=== PATIENT | female | born 1970 | race Caucasian/White ===

== ENCOUNTER → 2017-05-10 | Outpatient (CLI) | payer OTHER ==
--- NOTE | 2017-05-11 08:31 | MM ---
Reason for exam: screening (asymptomatic). Last mammogram was performed 1 year and 5 months ago. History: Family history of breast cancer in paternal aunt at age 40 and breast cancer in paternal grandmother at age 50. Took hormonal contraceptives for 7 years beginning at age 24. Physical Findings: A clinical breast exam by your physician is recommended on an annual basis and results should be correlated with mammographic findings. MG 3D Screening Mammo W/Cad Bilateral CC and MLO view(s) were taken. Prior study comparison: December 16, 2015, bilateral MG diagnostic mammo w CAD [facility]. August 14, 2014, mammogram, performed at [facility]. The breast tissue is extremely dense which could obscure a lesion on mammography. There is no discrete abnormality. No significant changes when compared with prior studies. ASSESSMENT: Negative, BI-RAD 1 RECOMMENDATION: Routine screening mammogram of both breasts in 1 year.
== END | disposition home or self-care (01) ==
LOC: RADMAMWWP 09:05
PROVIDERS: ATTEND Obstetrics & Gynecology
DX: Z12.31 Encounter for screening mammogram for malignant neoplasm of breast (principal)
CPT/HCPCS: 77063; 77067

== ENCOUNTER → 2017-12-20 | Outpatient (CLI) | payer OTHER ==
--- NOTE | 2017-12-22 08:51 | MR ---
EXAMINATION TYPE: MR knee RT wo con DATE OF EXAM: 12/20/2017 COMPARISON: Outside radiographs 12/07/2017 HISTORY: 47-year-old female knee pain, lateral aspect x 2 months TECHNIQUE: Multiplanar, multisequence imaging of the right knee is performed without IV contrast. FINDINGS: ACL is intact but shows a 1.8 x 1.0 x 0.8 cm multilocular ganglion cyst. No intraosseous or other int ra-articular extension. PCL, MCL, and LCL complex are intact. Mild diffuse thinning of both medial and lateral compartment articular cartilage volumes. No focal ch ondral defect. Both medial and lateral menisci are intact. Overall patellofemoral compartment articular cartilage volume is maintained. Extensor mechanism is intact but with mild thickening and intermediate signal on the deep proximal pa tellar tendon fibers compatible with tendinosis. There is focal edema and soft tissue thickening at the origin of the medial head gastrocnemius along the posterolateral aspect of the medial femoral condyle, refer to axial image 16, sagittal image 6, a nd coronal image 23. Physiologic joint fluid. Trace fluid insinuating between the medial head gastrocnemius and semimembra nosus tendons. No sizable Allan's cyst at this time. Normal popliteal artery anatomy and muscle bulk. No suspicious bone marrow replacement. IMPRESSION: 1. ACL ganglion cyst measuring 1.8 x 1.0 cm may be incidental. These can be symptomatic in some patie nts. 2. No focal chondral injury or otherwise any cruciate/collateral ligament or meniscal tear. 3. Focal edema and soft tissue thickening at the origin of the medial head gastrocnemius could repres ent a mild to moderate strain.
== END | disposition home or self-care (01) ==
LOC: RADMRIMAIN 14:48
PROVIDERS: ATTEND Orthopaedic Surgery
DX: M67.461 Ganglion, right knee (principal); M79.89 Other specified soft tissue disorders; M25.461 Effusion, right knee

== ENCOUNTER → 2019-04-03 | Outpatient (CLI) | payer OTHER ==
--- NOTE | 2019-04-04 13:08 | MM ---
Reason for exam: screening (asymptomatic). Last mammogram was performed 1 year and 11 months ago. History: Family history of breast cancer in paternal aunt at age 40 and breast cancer in paternal grandmother at age 50. Took hormonal contraceptives for 7 years beginning at age 24. Physical Findings: A clinical breast exam by your physician is recommended on an annual basis and results should be correlated with mammographic findings. MG 3D Screening Mammo W/Cad Bilateral CC and MLO view(s) were taken. Prior study comparison: May 10, 2017, bilateral MG 3d screening mammo w/cad. December 16, 2015, bilateral MG diagnostic mammo w CAD [facility]. The breast tissue is heterogeneously dense. This may lower the sensitivity of mammography. No significant changes when compared with prior studies. ASSESSMENT: Negative, BI-RAD 1 RECOMMENDATION: Routine screening mammogram of both breasts in 1 year.
== END | disposition home or self-care (01) ==
LOC: RADMAMWWP 09:28
PROVIDERS: ATTEND Obstetrics & Gynecology
DX: Z12.31 Encounter for screening mammogram for malignant neoplasm of breast (principal); Z80.3 Family history of malignant neoplasm of breast
CPT/HCPCS: 77063; 77067

== ENCOUNTER → 2021-06-26 | Outpatient (CLI) | payer OTHER ==
--- NOTE | 2021-06-30 09:35 | MM ---
Reason for Exam: Screening (asymptomatic). Last mammogram was performed 2 year(s) and 3 month(s) ago. Patient History: Menarche at age 12. First Full-Term at age 29. Hormonal Contraceptives for 7 years from age 24 until age 31. Paternal grandmother had breast cancer, age 50. Paternal aunt had breast cancer, age 40. Film Views: Bilateral CC views were taken. Bilateral MLO views were taken. Prior Study Comparison: 12/16/2015 Bilateral Diagnostic Mammogram, [facility]. 05/10/2017 Bilateral Screening Mammogram, [facility]. 04/03/2019 Bilateral Screening Mammogram, [facility]. Tissue Density: The breast tissue is extremely dense which could obscure a lesion on mammography. Findings: Analyzed By CAD. No significant changes when compared with prior studies. Overall Assessment: Negative, BI-RAD 1 Management: Screening Mammogram of both breasts in 1 year.
== END | disposition home or self-care (01) ==
LOC: RADMAMWWP 10:50
PROVIDERS: ATTEND Family Medicine
DX: Z08 Encounter for follow-up examination after completed treatment for malignant neoplasm (principal); Z80.3 Family history of malignant neoplasm of breast
CPT/HCPCS: 77063; 77067

== ENCOUNTER → 2022-07-15 | Outpatient (CLI) | payer OTHER ==
--- NOTE | 2022-07-16 08:42 | MM ---
Reason for Exam: Screening (asymptomatic). Last mammogram was performed 1 year(s) and 1 month(s) ago. Patient History: Menarche at age 12. First Full-Term at age 29. Postmenopausal. Currently using Hormonal Contraceptives, for 8 years. Paternal grandmother had breast cancer, age 50. Paternal aunt had breast cancer, age 40. Risk Values: Concha 5 year model risk: 1.1%. NCI Lifetime model risk: 9.7%. Prior Study Comparison: 05/10/2017 Bilateral Screening Mammogram, [facility]. 04/03/2019 Bilateral Screening Mammogram, [facility]. 06/26/2021 Bilateral MG 3D screening mammo w/cad, [facility]. Tissue Density: There are scattered fibroglandular densities. Findings: Analyzed By CAD. There is no suspicious group of microcalcifications or new suspicious mass in either breast. Overall Assessment: Negative, BI-RAD 1 Management: Screening Mammogram of both breasts in 1 year. . Patient should continue monthly self-breast exams. A clinical breast exam by your physician is recommended on an annual basis. This exam should not preclude additional follow-up of suspicious palpable abnormalities. Note on Concha scores and lifetime risk: 1. A Concha score greater than 3% is considered moderate risk. If this is the case, consider specialist referral to assess eligibility for a risk reducing agent. 2. If overall lifetime risk for the development of breast cancer is 20% or higher, the patient may qualify for future screening with alternating mammogram and breast MRI. Electronically signed and approved by: Noé Graf M.D. Radiologis
== END | disposition home or self-care (01) ==
LOC: RADMAMWWP 14:03
PROVIDERS: ATTEND Family Medicine
DX: Z12.31 Encounter for screening mammogram for malignant neoplasm of breast (principal); Z80.3 Family history of malignant neoplasm of breast; Z78.0 Asymptomatic menopausal state
CPT/HCPCS: 77063; 77067

== ENCOUNTER → 2023-02-11 | Outpatient (CLI) | payer OTHER ==
[2023-02-11 16:03] LABS: Estradiol <20.0 pg/mL
[2023-02-11 16:05] LABS: Follicle Stimulating Hormone 76.5 mIU/mL; Luteinizing Hormone 58.5 mIU/mL
== END | disposition home or self-care (01) ==
LOC: LABWHC1 09:39
PROVIDERS: ATTEND Family Medicine
DX: N92.6 Irregular menstruation, unspecified (principal); R23.2 Flushing
CPT/HCPCS: 36415; 82670; 82672; 83001; 83002; 84144; 84402

== ENCOUNTER → 2023-11-17 | Outpatient (CLI) | payer OTHER ==
--- NOTE | 2023-11-18 13:52 | MM ---
Reason for Exam: Screening (asymptomatic). Last mammogram was performed 1 year(s) and 4 month(s) ago. Patient History: Menarche at age 12. First Full-Term at age 29. Postmenopausal. Currently using Hormonal Contraceptives, for 8 years. Paternal grandmother had breast cancer, age 50. Paternal aunt had breast cancer, age 40. Risk Values: Concha 5 year model risk: 1.2%. NCI Lifetime model risk: 9.6%. Prior Study Comparison: 04/03/2019 Bilateral Screening Mammogram, [facility]. 06/26/2021 Bilateral MG 3D screening mammo w/cad, [facility]. 07/15/2022 Bilateral MG 3D screening mammo w/cad, [facility]. Tissue Density: The breasts are heterogeneously dense, which may obscure small masses. Findings: Analyzed By CAD. There is no suspicious group of microcalcifications or new suspicious mass in either breast. Overall Assessment: Negative, BI-RAD 1 Management: Screening Mammogram of both breasts in 1 year. . Patient should continue monthly self-breast exams. A clinical breast exam by your physician is recommended on an annual basis. This exam should not preclude additional follow-up of suspicious palpable abnormalities. Note on Concha scores and lifetime risk: 1. A Concha score greater than 3% is considered moderate risk. If this is the case, consider specialist referral to assess eligibility for a risk reducing agent. 2. If overall lifetime risk for the development of breast cancer is 20% or higher, the patient may qualify for future screening with alternating mammogram and breast MRI. [facility], , 11/18/2023 1:49 PM. Electronically signed and approved by: Noé Graf M.D. Radiologis
== END | disposition home or self-care (01) ==
LOC: RADMAMWWP 13:04
PROVIDERS: ATTEND Family Medicine
DX: Z80.3 Family history of malignant neoplasm of breast
CPT/HCPCS: 77063; 77067